=== PATIENT | female | born 1930 | race Caucasian/White ===

== ENCOUNTER → 2016-11-28 | Outpatient (CLI) | payer MEDICARE, OTHER ==
[~2016-11-28] MED LIST: ACET325T9 PO; B12/1TAB PO; CALC600T4 PO; DOCU50CA9 PO; HYOS0.3716 PO; LOVA20TA2 PO; MULTI; OMEP20CA9 PO; POTA20TA12 PO; PROXETINE; TRAZ50TA15 PO; [UNRECOGNIZED DRUG - OTHER]
== END | disposition home or self-care (01) ==
LOC: SPEC 08:17
PROVIDERS: ATTEND Specialist
DX: E78.5 Hyperlipidemia, unspecified (principal)
CPT/HCPCS: 84443

== ENCOUNTER 2017-01-27 08:16 | Emergency (ER) | payer MEDICARE, OTHER ==
[2017-01-27 09:01] LABS: BASO % 0 % (0-3); EOS % 0 % (0-3); HEMATOCRIT 39.3 % (36.0-47.0); HEMOGLOBIN 13.2 g/dL (12.0-15.5); LYMPH # 0.7 x10^3/uL (1.0-4.8); LYMPH % 7 % (24-48); MEAN CORPUSCULAR HEMOGLOBIN 31 pg (25-35); MEAN CORPUSCULAR HGB CONC 34 g/dL (31-37); MEAN CORPUSCULAR VOLUME 93 fL (79-100); MONO # 0.6 x10^3/uL (0.0-1.1); MONO % 7 % (0-9); NEUT % 86 % (31-73); PLATELET COUNT 151 x10^3/uL (140-400); RED BLOOD COUNT 4.22 x10^6/uL (3.50-5.40); RED CELL DISTRIBUTION WIDTH 13.1 % (11.5-14.5); WHITE BLOOD COUNT 9.4 x10^3/uL (4.0-11.0)
[2017-01-27 09:14] LABS: ALBUMIN 3.2 g/dL (3.4-5.0); ALBUMIN/GLOBULIN RATIO 1.1 (1.0-1.7); CALCIUM 8.3 mg/dL (8.5-10.1); CREATININE 0.8 mg/dL (0.6-1.0); GFR 67.7; POTASSIUM 3.7 mmol/L (3.5-5.1); TOTAL BILIRUBIN 0.8 mg/dL (0.2-1.0); TOTAL PROTEIN 6.2 g/dL (6.4-8.2)
--- NOTE | 2017-01-27 09:37 | RAD ---
Indication: Pain in the right pelvis, fall. Time of exam 0928 hours. A single AP view of the pelvis was obtained. The femoral acetabular alignment is normal bilaterally. Both femoral heads and necks appear intact. The rami appear intact. The SI joints and symphysis are not widened. Impression: No acute bony abnormality is detected.
[2017-01-27] MEDS ORDERED: LORazepam 2 MG/ML VIAL IV ONE (09:45)
[2017-01-27] MEDS ORDERED: MORPHINE SULFATE 5 MG/ML SYRINGE. IV ONE (09:45)
--- NOTE | 2017-01-27 09:46 | RAD ---
Indication: Fall and head injury with altered mental status. Axial imaging through the brain was performed without contrast. No prior studies are available for comparison. There is an acute subdural hematoma noted along the left cerebral convexity, measuring up to approximate 5 to 6 mm in thickness. No significant mass effect or midline shift is seen. There is a primarily low density subdural collection along the right cerebral convexity consistent with a chronic subdural, however, there is a thin region of hyperdensity within it consistent with acute blood. Findings are consistent with acute on chronic subdural on the right. No intraparenchymal or intraventricular hemorrhage is detected. Moderate periventricular hypodensity is seen consistent with senescent change. Cisterns are patent. Impression: 1. Acute left cerebral convexity subdural hematoma, without evidence of mass effect. 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 Results were discussed with Dr. Waller of the emergency Department prior to this dictation. PQRS Compliance Statement: One or more of the following individualized dose reduction techniques were utilized for this examination: 1. Automated exposure control 2. Adjustment of the mA and/or kV according to patient size 3. Use of iterative reconstruction technique
--- NOTE | 2017-01-27 10:12 | PHYS DOC ---
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 She was using her walker to get up in the middle of the night and go to the bathroom, she fell over onto her left side, striking her left hip/ buttock and left side of her head. sHe has been ambulatory since the fall. Today she has a headache and family members state that she is confused. The patient also states she has some pain in the lateral left hip area. The patient denies neck pain or other pain. Review of Systems Review of Systems Constitutional: Denies fever or chills [] Eyes: Denies change in visual acuity, redness, or eye pain [] HENT: Denies nasal congestion or sore throat [] Respiratory: Denies cough or shortness of breath [] Cardiovascular: Denies chest pain GI: Denies abdominal pain, nausea, vomiting, bloody stools or diarrhea [] : Denies dysuria or hematuria [] Musculoskeletal: Left hip/buttock area pain Integument: Denies rash or skin lesions [] Neurologic: As in history of present illness Current Medications Current Medications Current Medications Medications (Trade) Dose Ordered Sig/Buddy Start Time Stop Time Status Last Admin Dose Admin Lorazepam (Ativan) 1 mg 1X ONCE 01/27/17 09:45 01/27/17 09:45 DC Morphine Sulfate (Morphine 5mg Syringe) 5 mg 1X ONCE 01/27/17 09:45 01/27/17 09:45 DC Allergies Allergies Allergies Coded Allergies Type Severity Reaction Last Updated Verified No Known Drug Allergies 07/25/15 No Physical Exam Physical Exam Constitutional: Well developed, well nourished, no acute distress, non-toxic appearance. Alert, mentating normally on my assessment. HENT: Normocephalic, atraumatic, bilateral external ears normal, oropharynx moist, no oral exudates, nose normal. [] Eyes: PERRLA, EOMI, conjunctiva normal, no discharge. [] Neck: Normal range of motion, no tenderness, supple, no stridor. [] Cardiovascular:Heart rate regular rhythm, no murmur [] Lungs & Thorax: Bilateral breath sounds clear to auscultation [] Abdomen: Bowel sounds normal, soft, no tenderness, no masses, no pulsatile masses. [] Skin: Warm, dry, no erythema, no rash. [] Back: No tenderness, no CVA tenderness. [] Extremities: Tenderness to palpation over the lateral left hip and left buttock area. Full range of motion of the left hip without pain. Some pain with rocking of the pelvis. Otherwise, No tenderness, no cyanosis, no clubbing, ROM intact, no edema. [] Neurologic: Alert and oriented X 3, normal motor function, normal sensory function, no focal deficits noted. [] Current Patient Data Vital Signs Vital Signs Date Time Temp Pulse Resp B/P (MAP) Pulse Ox O2 Delivery O2 Flow Rate FiO2 01/27/17 08:30 98.6 78 18 96 Room Air Lab Results Laboratory Tests Test 01/27/17 08:47 White Blood Count 9.4 x10^3/uL (4.0-11.0) Red Blood Count 4.22 x10^6/uL (3.50-5.40) Hemoglobin 13.2 g/dL (12.0-15.5) Hematocrit 39.3 % (36.0-47.0) Mean Corpuscular Volume 93 fL (79-100) Mean Corpuscular Hemoglobin 31 pg (25-35) Mean Corpuscular Hemoglobin Concent 34 g/dL (31-37) Red Cell Distribution Width 13.1 % (11.5-14.5) Platelet Count 151 x10^3/uL (140-400) Neutrophils (%) (Auto) 86 % (31-73) H Lymphocytes (%) (Auto) 7 % (24-48) L Monocytes (%) (Auto) 7 % (0-9) Eosinophils (%) (Auto) 0 % (0-3) Basophils (%) (Auto) 0 % (0-3) Neutrophils # (Auto) 8.0 x10^3uL (1.8-7.7) H Lymphocytes # (Auto) 0.7 x10^3/uL (1.0-4.8) L Monocytes # (Auto) 0.6 x10^3/uL (0.0-1.1) Eosinophils # (Auto) 0.0 x10^3/uL (0.0-0.7) Basophils # (Auto) 0.0 x10^3/uL (0.0-0.2) Sodium Level 138 mmol/L (136-145) Potassium Level 3.7 mmol/L (3.5-5.1) Chloride Level 102 mmol/L (98-107) Carbon Dioxide Level 28 mmol/L (21-32) Anion Gap 8 (6-14) Blood Urea Nitrogen 13 mg/dL (7-20) Creatinine 0.8 mg/dL (0.6-1.0) Estimated GFR (Cockcroft-Gault) 67.7 BUN/Creatinine Ratio 16 (6-20) Glucose Level 179 mg/dL (70-99) H Calcium Level 8.3 mg/dL (8.5-10.1) L Total Bilirubin 0.8 mg/dL (0.2-1.0) Aspartate Amino Transferase (AST) 21 U/L (15-37) Alanine Aminotransferase (ALT) 27 U/L (14-59) Alkaline Phosphatase 106 U/L (46-116) Total Protein 6.2 g/dL (6.4-8.2) L Albumin 3.2 g/dL (3.4-5.0) L Albumin/Globulin Ratio 1.1 (1.0-1.7) EKG EKG [] Radiology/Procedures Radiology/Procedures One view AP pelvis read by me. No acute bony abnormality. CT scan of the head read by the radiologist who called me. The patient has acute on chronic right subdural hematoma and acute left subdural hematoma. There is no evidence of mass effect bilaterally. [] Course & Med Decision Making Course & Med Decision Making Pertinent Labs and Imaging studies reviewed. (See chart for details) 86-year-old female presents after a fall 2 days ago with a head injury. Evaluation reveals bilateral subdural hematomas. She is on aspirin 81 mg. She is alert with a normal neuro exam. I discussed the case with Zara for the surgery service at [facility]. They are comfortable taking the patient in transfer. I discussed the case with Dr. Jackson, hospitalist at [facility], who will accept the patient to transfer to the ICU. I discussed the diagnosis and plan with the patient and the family member here with her. They are agreeable to the plan and understand, questions were answered. The patient is stable for transfer to [place]. [] Dragon Disclaimer Dragon Disclaimer This chart was dictated in whole or in part using Voice Recognition software in a busy, high-work load, and often noisy Emergency Department environment. It may contain unintended and wholly unrecognized errors or omissions. Departure Departure: Impression: Primary Impression: Bilateral subdural hematomas Disposition: 02 XFER SHT-TRM HOSP Condition: STABLE Referrals: SILVANA FERNANDEZ MD (PCP) ASHLEY GARY MD Jan 27, 2017 10:12
[2017-01-27 10:19] LABS: BACTERIA,URINE 0 /HPF (0-FEW); BILIRUBIN,URINE NEG (NEG); CLARITY,URINE CLOUDY; COLOR,URINE YELLOW; GLUCOSE,URINE NEG (NEG); NITRITE,URINE NEG (NEG); RBC,URINE RARE /HPF (0-2); UROBILINOGEN,URINE 0.2 mg/dL (0.2 mg/dL); WBC,URINE RARE /HPF (0-4)
[2017-01-27 10:20] LABS: AMORPHOUS SEDIMENT,UR PRESENT /HPF
[2017-01-27 10:45] VITALS: BP 150/90
== END 2017-01-27 11:00 | disposition short-term general hospital (02) ==
LOC: ER 08:16
DX: S06.5X0A Traumatic subdural hemorrhage without loss of consciousness, initial encounter (principal); I10 Essential (primary) hypertension; K21.9 Gastro-esophageal reflux disease without esophagitis; W18.09XA Striking against other object with subsequent fall, initial encounter; Y93.89 Activity, other specified; Y99.8 Other external cause status; Y92.89 Other specified places as the place of occurrence of the external cause
CPT/HCPCS: 36415; 70450; 72170; 80053; 81001; 85027; 99285-25

== ENCOUNTER 2017-02-01 10:56 | Emergency (ER) | payer MEDICARE, OTHER ==
[2017-02-01] MEDS ORDERED: LORazepam 2 MG/ML VIAL IV ONE (11:30)
--- NOTE | 2017-02-01 11:40 | PHYS DOC ---
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 Today was brought in with the complaint of "fever", temp had been measured 100.4, also pain and apparent agitation. Written history that accompanies the patient states that she was given Tylenol at 10:00. There is no further history available, and patient is unable to contribute to the history. 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 Review of Systems Review of Systems Patient is unable to give verbal answers to review of his systems questions, ROS not able to be obtained due to altered mental status. Current Medications Current Medications Current Medications Medications (Trade) Dose Ordered Sig/Buddy Start Time Stop Time Status Last Admin Dose Admin Lorazepam (Ativan) 1 mg 1X ONCE 02/01/17 11:30 02/01/17 11:31 Allergies Allergies Allergies Coded Allergies Type Severity Reaction Last Updated Verified No Known Drug Allergies 07/25/15 No Physical Exam Physical Exam Constitutional: Elderly female who has her eyes open, moving all extremities, appears agitated, making agitated moaning noises, not able to verbally answer questions. HENT: Normocephalic, atraumatic, bilateral external ears normal, oropharynx moist, no oral exudates, nose normal. [] Eyes: PERRLA, EOMI, conjunctiva normal, no discharge. [] Neck: Normal range of motion, no tenderness, supple, no stridor. [] Cardiovascular:Heart rate regular rhythm, no murmur [] Lungs & Thorax: Bilateral breath sounds clear to auscultation [] Abdomen: Bowel sounds normal, soft, no tenderness, no masses, no pulsatile masses. [] Skin: Warm, dry, no erythema, no rash. [] Back: No tenderness, no CVA tenderness. [] Extremities: No tenderness, no cyanosis, no clubbing, ROM intact, no edema. [] Neurologic: Alert and oriented X 3, normal motor function, normal sensory function, no focal deficits noted. [] Psychologic: Affect normal, judgement normal, mood normal. [] EKG EKG 12-lead EKG read by me. Sinus rhythm. Heart rate 89. There is mild T wave flattening and inversion across the precordium most pronounced in V2 through V5 , there are no acute ST or T wave elevations or depressions. I don't believe the finding is significant for ischemia, more likely related to the brain injury , no STEMI. 12 with 3 [] Radiology/Procedures Radiology/Procedures CT scan of the head read by the radiologist, reviewed by me. Right-sided subdural has increased slightly in size. Predominantly of low density compatible with a chronic hematoma. Moderate sized left subdural hematoma is of similar size. Increasing bilateral mass effect with effacement of the cortical sulci in the lateral ventricles [] Course & Med Decision Making Course & Med Decision Making Pertinent Labs and Imaging studies reviewed. (See chart for details) 86-year-old female who was recently diagnosed with bilateral subdural hematomas , brought to the ED for altered mental status, agitation. The patient is markedly different than she was last week. She is not able to talk or answer questions due to agitation and confusion. She was given Ativan 1 mg IV so she could lay still for CT scan. She is nonfocal. CT scan shows slight increase in size of the right subdural hematoma with increasing bilateral mass effect. I discussed the case with Zara, neurosurgery service at [facility]. Dr. Reagan, neurosurgeon, reviewed the patient's CT scan. They will accept the patient to be transferred to [place] in the care of the hospital medicine service in the ICU. He advised that the patient should be kept with a systolic blood pressure under 140. The patient's systolics have been in the low 140s here. I will not start Cardene prior to transfer because I don't want to bottom her out in the ambulance in case of some mishap. I did communicate this with Dr. Trinidad that her blood pressure should be managed if her systolics are above 140. I discussed the case with Dr. Trinidad, [facility]. She will admit the patient. We will send the patient by ambulance to ICU at [place]. I discussed this with the friend who has accompanied the patient to the ED. [] Dragon Disclaimer Dragon Disclaimer This chart was dictated in whole or in part using Voice Recognition software in a busy, high-work load, and often noisy Emergency Department environment. It may contain unintended and wholly unrecognized errors or omissions. Departure Departure: Impression: Primary Impression: Bilateral subdural hematomas Additional Impressions: Mental status change Agitation Disposition: 02 XFER SHT-TRM HOSP Condition: GUARDED Referrals: SILVANA FERNANDEZ MD (PCP) Problem Qualifiers SAHLEY GARY MD Feb 01, 2017 11:40
[2017-02-01 11:58] LABS: BASO % 0 % (0-3); EOS % 0 % (0-3); HEMATOCRIT 36.5 % (36.0-47.0); HEMOGLOBIN 12.3 g/dL (12.0-15.5); LYMPH # 0.6 x10^3/uL (1.0-4.8); LYMPH % 6 % (24-48); MEAN CORPUSCULAR HEMOGLOBIN 32 pg (25-35); MEAN CORPUSCULAR HGB CONC 34 g/dL (31-37); MEAN CORPUSCULAR VOLUME 94 fL (79-100); MONO # 0.9 x10^3/uL (0.0-1.1); MONO % 11 % (0-9); NEUT # 7.3 x10^3uL (1.8-7.7); NEUT % 83 % (31-73); PLATELET COUNT 183 x10^3/uL (140-400); RED BLOOD COUNT 3.89 x10^6/uL (3.50-5.40); RED CELL DISTRIBUTION WIDTH 13.2 % (11.5-14.5); WHITE BLOOD COUNT 8.8 x10^3/uL (4.0-11.0)
--- NOTE | 2017-02-01 11:59 | RAD ---
CT of the head without contrast, 02/01/2017: History: Headache, confusion, recent subdural hematomas Comparison is made to a study from 01/27/2017. Again noted is a moderate sized recent subdural hematoma on the left. It is of similar overall size when compared to the 01/27/2017 exam. There is now some layering of higher density components posteriorly and low-density components anteriorly. There is also a persistent abnormal subdural fluid collection on the right. It appears to have increased slightly in size. It is predominantly of low density compatible with a chronic hematoma. There is only a small hyperdense component evident in the right temporal region The degree of effacement of the underlying cortical sulci has increased slightly on both sides. There is also increased effacement of the lateral ventricles. There is no significant midline shift. No intra-axial hemorrhage is identified. IMPRESSION: 1. Increasing bilateral mass effect with effacement of the cortical sulci and the lateral ventricles, related to the patient's known bilateral subdural hematomas. 2. The acute on chronic right-sided subdural hematoma appears to have increased slightly in size, while the evolving acute left subdural hematoma is of similar size when compared to the 01/27/2017 exam. PQRS Compliance Statement: One or more of the following individualized dose reduction techniques were utilized for this examination: 1. Automated exposure control 2. Adjustment of the mA and/or kV according to patient size 3. Use of iterative reconstruction technique
[2017-02-01 12:12] LABS: ALBUMIN 2.6 g/dL (3.4-5.0); ALBUMIN/GLOBULIN RATIO 0.7 (1.0-1.7); CALCIUM 8.2 mg/dL (8.5-10.1); GFR 52.3; POTASSIUM 3.9 mmol/L (3.5-5.1); TOTAL BILIRUBIN 0.5 mg/dL (0.2-1.0); TOTAL PROTEIN 6.2 g/dL (6.4-8.2)
[2017-02-01 13:07] VITALS: BP 143/82
--- NOTE | 2017-02-01 15:00 | EKG ---
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
== END 2017-02-01 13:20 | disposition short-term general hospital (02) ==
LOC: ER 10:56
DX: S06.5X0A Traumatic subdural hemorrhage without loss of consciousness, initial encounter (principal); R41.82 Altered mental status, unspecified; R45.1 Restlessness and agitation; K21.9 Gastro-esophageal reflux disease without esophagitis; I10 Essential (primary) hypertension; X58.XXXA Exposure to other specified factors, initial encounter; Y93.89 Activity, other specified; Y99.8 Other external cause status; Y92.89 Other specified places as the place of occurrence of the external cause
CPT/HCPCS: 36415; 70450; 80053; 85027; 93005; 96374; 99285; J2060

== ENCOUNTER 2017-03-16 09:20 | Inpatient (IN) | payer MEDICARE, OTHER ==
[~2017-03-16] VITALS: Ht 160 cm; Wt 60.6 kg
[2017-03-16] MEDS ORDERED: IV NORMAL SALINE 1,000ML 500 ML IV SCH (09:40)
[2017-03-16 10:00] LABS: WHITE BLOOD COUNT 11.6 x10^3/uL (4.0-11.0)
[2017-03-16 10:01] LABS: HEMATOCRIT 39.4 % (36.0-47.0); MEAN CORPUSCULAR HEMOGLOBIN 31 pg (25-35); MEAN CORPUSCULAR HGB CONC 33 g/dL (31-37); MEAN CORPUSCULAR VOLUME 93 fL (79-100); PLATELET COUNT 208 x10^3/uL (140-400); RED BLOOD COUNT 4.22 x10^6/uL (3.50-5.40); RED CELL DISTRIBUTION WIDTH 13.5 % (11.5-14.5)
[2017-03-16 10:15] LABS: % BANDS 1 % (0-9); % BASOS 1 % (0-3); % EOS 1 % (0-5); % LYMPHS 4 % (24-48); % MONOS 4 % (0-10); % SEGS 89 % (35-66); PLT ESTIMATE ADEQUATE (ADEQUATE)
[2017-03-16] MEDS ORDERED: ONDANSETRON PF 4 MG/2 ML VIAL. IV ONE (10:15)
[2017-03-16] MEDS: fentaNYL PF 100 MCG/2 ML VIAL IV PRN ×2 (10:22→14:25)
[2017-03-16 10:24] LABS: HEMOGLOBIN ISTAT 13.6 gm/dL; POTASSIUM ISTAT 4.1 mmol/L (3.5-5.0)
--- NOTE | 2017-03-16 10:43 | PHYS DOC ---
General Chief Complaint: GI PROBLEM Stated Complaint: ABDOMINAL PAIN Time Seen by MD: 09:25 Source: patient Exam Limitations: no limitations Problems: History of Present Illness Initial Comments Patient is an 86-year-old female brought to the ED with right lower quadrant pain. Patient states that she went to bed feeling well last night. She awoke to severe right lower quadrant pain at approximately 7 AM. She had accompanying nausea no vomiting, she went to breakfast and trying to eat a little bit but the pain was too severe. She was a vague historian on arrival due to severe discomfort, once her pain was controlled she denied any vomiting or diarrhea her last bowel movement was yesterday described as normal. She's had no urinary symptoms or other complaints until she awoke this morning. ED vitals: 98.1, 102, 22, 111/66, 95% room air Timing/Duration: 1-3 hours Severity: severe Modifying Factors: improves with other Associated Symptoms: nausea/vomiting, other Allergies: Coded Allergies: No Known Drug Allergies (Unverified , 07/25/15) Past Medical History Medical History: other (breast cancer, anxiety, constipation, GERD, hypertension) Surgical History: other (appendectomy, cholecystectomy, hysterectomy, mastectomy) Social History Smoker: non-smoker Alcohol: none Drugs: none Review of Systems Constitutional: denies chills, denies fever, malaise Respiratory: denies cough, denies shortness of breath, denies wheezing Cardiovascular: denies chest pain, denies palpitations, denies syncope Gastrointestinal: see HPI Genitourinary: denies dysuria, denies frequency, denies hematuria Musculoskeletal: denies back pain, denies joint swelling, denies neck pain Psychiatric/Neurological: denies headache, denies numbness, denies paresthesia Physical Exam General Appearance: WD/WN, moderate distress Eyes: bilateral eye normal inspection, bilateral eye PERRL, bilateral eye EOMI Ear, Nose, Throat: hearing grossly normal, normal ENT inspection, normal pharynx Neck: non-tender, supple Respiratory: normal breath sounds, no respiratory distress Cardiovascular: normal peripheral pulses, regular rate, rhythm Gastrointestinal: soft (nondistended, diffuse lower abdominal tenderness localized to the suprapubic and right lower quadrant regions. 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 She reports that her pain has resolved completely she is no longer nauseous. I advised her that her studies were pending. PATIENT: YVROSE MENDOZA ACCOUNT: [id number] : 1930 LOCATION: ER AGE: 86 SEX: F EXAM STATUS: REG ER ORD. PHYSICIAN: TYLER SNELL DO REASON: rlq abd pain PROCEDURE: CT ABDOMEN PELVIS WO CONTRAST CT abdomen/pelvis without contrast 03/16/2017 at 1005 hours Indication: Right lower quadrant abdominal pain Comparison: Abdomen/pelvis 07/25/2015 Technique: Multiple axial CT images of the abdomen and pelvis were obtained without intravenous contrast. Coronal and sagittal reformats are provided. Findings: Lung bases are clear. Heart size is within normal limits. Evaluation of the solid abdominal viscera is limited by lack of intravenous contrast. Stable hypodense lesions within the hepatic parenchyma measuring up to 32 x 25 mm most suggestive of simple cysts. Stable 12 mm peripherally calcified lesion in the inferior right hepatic lobe, which may represent prior hepatic cyst with wall calcification. Splenic and hepatic granuloma are present. Cholecystectomy changes are identified. Pancreas is within normal limits. CBD is prominent measuring up to 12 mm, stable. No renal calculi are identified. No hydronephrosis. No ureteral or bladder calculi are identified. Urinary bladder is within normal limits given degree of distention. Abdominal aorta is normal in course and caliber with scattered atherosclerotic desiccation. No enlarged abdominal or pelvic lymph nodes are identified. There is no free fluid or free intraperitoneal air. Small and large bowel loops are nondilated. Sigmoid diverticulosis is present without adjacent inflammatory changes to suggest diverticulitis. Appendix is not definitively visualized. No contour changes are identified in the right lower quadrant. There is grade 1 anterolisthesis of L3 on L4. There is moderate to severe spinal canal stenosis at L3-L4. No significant adnexal masses are identified. Impression: 1. No acute process is identified within the abdomen or pelvis. No calculi are identified in the kidneys, ureters or urinary bladder. No obstructive uropathy. 2. Appendix not definitively visualized. No infiltration is identified in the right lower quadrant. Correlation with surgical history is recommended. PQRS Compliance Statement: One or more of the following individualized dose reduction techniques were utilized for this examination: 1. Automated exposure control 2. Adjustment of the mA and/or kV according to patient size 3. Use of iterative reconstruction technique DICTATED AND SIGNED BY: MARTI CLEVELAND MD DATE: 03/16/17 1019 CC: SILVANA FERNANDEZ MD; TYLER SNELL DO ~ 1115: Time in department 1h 56min. Labs remain pending, pt will have prolonged ED course due to lab delay. Pertinent labs: White blood cells 11.6, 1, lactic acid 2.5, urinalysis grossly positive interaction I discussed the patient with Dr. Wan, urosepsis will require inpatient treatment. We'll continue IV hydration and will antimicrobial coverage with Zosyn and ciprofloxacin. Departure Disposition: ADMITTED INPATIENT Diagnosis: urosepsis Condition: STABLE Additional Instructions: Inpatient telemetry admission Dr. Wan is accepting TYLER SNELL DO Mar 16, 2017 10:43
--- NOTE | 2017-03-16 10:53 | RAD ---
CT abdomen/pelvis without contrast 03/16/2017 at 1005 hours Indication: Right lower quadrant abdominal pain Comparison: Abdomen/pelvis 07/25/2015 Technique: Multiple axial CT images of the abdomen and pelvis were obtained without intravenous contrast. Coronal and sagittal reformats are provided. Findings: Lung bases are clear. Heart size is within normal limits. Evaluation of the solid abdominal viscera is limited by lack of intravenous contrast. Stable hypodense lesions within the hepatic parenchyma measuring up to 32 x 25 mm most suggestive of simple cysts. Stable 12 mm peripherally calcified lesion in the inferior right hepatic lobe, which may represent prior hepatic cyst with wall calcification. Splenic and hepatic granuloma are present. Cholecystectomy changes are identified. Pancreas is within normal limits. CBD is prominent measuring up to 12 mm, stable. No renal calculi are identified. No hydronephrosis. No ureteral or bladder calculi are identified. Urinary bladder is within normal limits given degree of distention. Abdominal aorta is normal in course and caliber with scattered atherosclerotic desiccation. No enlarged abdominal or pelvic lymph nodes are identified. There is no free fluid or free intraperitoneal air. Small and large bowel loops are nondilated. Sigmoid diverticulosis is present without adjacent inflammatory changes to suggest diverticulitis. Appendix is not definitively visualized. No contour changes are identified in the right lower quadrant. There is grade 1 anterolisthesis of L3 on L4. There is moderate to severe spinal canal stenosis at L3-L4. No significant adnexal masses are identified. Impression: 1. No acute process is identified within the abdomen or pelvis. No calculi are identified in the kidneys, ureters or urinary bladder. No obstructive uropathy. 2. Appendix not definitively visualized. No infiltration is identified in the right lower quadrant. Correlation with surgical history is recommended. PQRS Compliance Statement: One or more of the following individualized dose reduction techniques were utilized for this examination: 1. Automated exposure control 2. Adjustment of the mA and/or kV according to patient size 3. Use of iterative reconstruction technique
[2017-03-16 11:05] LABS: ALBUMIN 3.4 g/dL (3.4-5.0); TOTAL PROTEIN 6.1 g/dL (6.4-8.2)
[2017-03-16 11:06] LABS: ALK PHOS 101 U/L (46-116); ALT (SGPT) 36 U/L (14-59); AST (SGOT) 38 U/L (15-37); TOTAL BILIRUBIN 0.8 mg/dL (0.2-1.0)
[2017-03-16 11:08] LABS: BILIRUBIN,URINE NEG (NEG); CLARITY,URINE CLOUDY; COLOR,URINE YELLOW; GLUCOSE,URINE NEG (NEG)
[2017-03-16 11:09] LABS: BACTERIA,URINE FEW /HPF (0-FEW); NITRITE,URINE POS (NEG); SQUAMOUS EPITHELIAL CELL,UR OCC /LPF; UROBILINOGEN,URINE 2 mg/dL (0.2 mg/dL); WBC,URINE 20-40 /HPF (0-4)
[2017-03-16 11:13] LABS: LIPASE 46 U/L (73-393)
[2017-03-16 11:21] LABS: DIRECT BILIRUBIN < 0.1 mg/dL (0.0-0.2)
[2017-03-16] MEDS ORDERED: PIP/TAZO PER PHARMACY MC PRN ×2 (11:30→14:30)
[2017-03-16] MEDS ORDERED: IV NORMAL SALINE 1,000ML 1,000 ML IV SCH (11:30)
[2017-03-16] MEDS ORDERED: ACETAMINOPHEN 325 MG TABLET PO PRN ×2 (11:45→17:15)
[2017-03-16] MEDS ORDERED: ONDANSETRON PF 4 MG/2 ML VIAL. IV PRN (11:45)
[2017-03-16] MEDS ORDERED: CIPROFLOXACIN 400MG PREMIX 200 ML IV ONE (11:50)
[2017-03-16] MEDS ORDERED: PIPERACILLIN/TAZOBACTAM 3.375 GM in IV NORMAL SALINE 50ML 50 ML IV ONE (12:10)
[2017-03-16] MEDS ORDERED: PIPERACILLIN/TAZOBACTAM 3.375 GM VIAL IV ONE (12:41)
[2017-03-16] MEDS ORDERED: IV NORMAL SALINE 50ML 50 ML ONE (12:41)
[2017-03-16 13:48] VITALS: BP 110/62
[2017-03-16] MEDS: IV NORMAL SALINE 1,000ML 1,000 ML IV SCH ×3 (14:25→20:15)
[2017-03-16] MEDS ORDERED: AMLO10TA4 PO (16:22)
[2017-03-16] MEDS ORDERED: OXYC-323 PO (16:22)
[2017-03-16] MEDS ORDERED: MELA3TAB2 PO (16:22)
[2017-03-16] MEDS ORDERED: DOCU-109 PO (16:22)
[2017-03-16] MEDS: PIPERACILLIN/TAZOBACTAM 3.375 GM in IV NORMAL SALINE 50ML 50 ML IV SCH ×2 (17:29→23:22)
[2017-03-16 19:20] VITALS: BP 117/66
[2017-03-16] MEDS: DOCUSATE SODIUM 100 MG CAPSULE PO PRN (20:16)
[2017-03-16] MEDS: MELATONIN 3 MG TABLET PO SCH (20:16)
[2017-03-16] MEDS: oxyCODONE/APAP 5/325 1 TAB TABLET PO PRN (20:18)
[2017-03-16] MEDS ORDERED: CIPROFLOXACIN 400MG PREMIX 200 ML IV SCH (21:00)
--- NOTE | 2017-03-16 22:24 | HP ---
ADMIT DATE: 03/16/2017 HISTORY OF PRESENT ILLNESS: The patient is an 86-year-old female patient, a resident at [facility] who came to the Emergency Room complaining of right upper quadrant pain which is stabbing in nature, and comes and goes. She has no history of recent falls. Denied any history of dysuria, frequency, or hematuria. Denied any history of renal stones, and her appendix and gallbladder were removed. She was investigated in the Emergency Room and was found to have leukocytosis with a white cell count of 11,600. Her chemistry showed that her lactic acid was slightly high at 2.5, and her urinalysis showed that her urine was yellow and cloudy with a pH of 7.5, and nitrites were positive as well as there were 20-40 WBCs and she was admitted with a diagnosis of urinary tract infection. A CT scan of the abdomen and pelvis; however, was unremarkable. In particular, there was no renal calculi identified. No hydronephrosis, ureteral, or bladder calculi identified and the bladder is within normal limits, given the degree of distention. In conclusion, there is no acute process identified in her abdomen and pelvis. No calculi identified in the kidneys, ureters, and bladder. No obstructive uropathy. The appendix was not definitely visualized, no infiltration identified in the right lower quadrant, and the patient was admitted to continue with IV antibiotic and IV fluid. PAST MEDICAL HISTORY: Significant for hypertension, gastroesophageal reflux disease, and has also history of subdural hematoma, status post evacuation. She has a history of breast cancer, status post mastectomy, and generalized osteoarthritis. PAST SURGICAL HISTORY: Significant for appendectomy, cholecystectomy, right mastectomy, total abdominal hysterectomy, bilateral salpingo-oophorectomy, and most recently a bilateral subdural hematoma, status post evacuation. ALLERGIES: She has no known drug allergies. MEDICATIONS: She is currently on the following medications: Tylenol 650 mg every 4 hours, amlodipine 10 mg once a day, Colace 100 mg daily p.r.n. for constipation, melatonin 3 mg at bedtime, omeprazole 20 mg once a day, Percocet 5/325 one tablet q.4-6 hours, and potassium chloride 20 mEq daily as needed. FAMILY HISTORY: Unremarkable. 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 She does not smoke, drink alcohol, or use any recreational drugs. 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 REVIEW OF SYSTEMS: As per history of present illness. PHYSICAL EXAMINATION: GENERAL: When I examined her, she was resting, slightly propped up in bed, in no apparent distress. She was pale, no jaundice, cyanosis, or thyromegaly. No jugular venous distention. No lymphedema. VITAL SIGNS: Her heart rate was 76, blood pressure was 110/60, temperature was 101.1, respiratory rate 20, and oxygen saturation was 96% on 2 liters of oxygen by nasal cannula. HEAD, EYES, EARS, NOSE AND THROAT: Showed normocephalic, status post craniotomy for evacuation of the subdural hematoma. The surgical incision has healed nicely. The head jason are removed. NECK: Supple. HEART: Normal first and second heart sounds with no gallop, rub, or murmur. CHEST: Clear to auscultation. No crepitation or rhonchi. ABDOMEN: Distended, soft, nontender. No guarding or rigidity. No organomegaly. All hernial orifices intact and bowel sounds normal. NEUROLOGIC: She was slightly demented, but otherwise without any obvious lateralizing sign. All her cranial nerves intact. EXTREMITIES: She moves extremities without difficulty. 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 LABORATORY DATA: While in the Emergency Room, she had lab work done, which showed a white cell count of 11,600, hemoglobin 13, hematocrit 39, MCV 93, and platelet count ____. The manual differential showed 89% poly segments, 1% bands, 4% lymphocytes, 4% monocytes. Her chemistry showed a serum sodium 140, potassium 4.1, chloride 101, bicarbonate 25, anion gap of 19, BUN 15, creatinine 0.7, and glucose 149. Lactic acid was 2.5 and her ionized calcium was 1.15. Total bilirubin, AST, ALT, alkaline phosphatase were normal. Total protein 6.1, albumin 3.4. Lipase was 46. Urinalysis showed the urine was yellow and cloudy with a pH of 7.5, specific gravity of ____. The urine was negative for protein, glucose, ketones, or blood, but was positive for nitrites and leukocyte esterase. There were 6-10 RBCs, 20-40 WBCs, few bacteria. The CT scan of the abdomen and pelvis showed the lung bases were clear and heart size was within normal limits. Evaluation of the abdominal viscera is limited by lack of intravenous contrast, stable hypodense lesions within the hepatic parenchyma measuring up to 32 x 25 mm, most suggestive of simple cysts, stable 12-mm peripherally calcified lesion in the inferior right hepatic lobe, which may represent prior hepatic cyst with wall calcification, splenic and hepatic granulomas are present. Cholecystectomy changes are identified. The pancreas is within normal limits. Bile duct is prominent measuring up to 12 mm and stable. No renal calculi identified. No hydronephrosis, no ureteral or bladder calculi identified. The urinary bladder is within renal limits, given degree with distention. Abdominal aorta is normal in course and caliber with scattered atherosclerotic desiccation, no enlarged abdominal or pelvic lymph nodes identified. There is no free fluid or free intraperitoneal air. There small and large bowel are nondilated. Sigmoid diverticulosis is present without adjacent inflammatory changes, just diverticulitis. Appendix is not definitely visualized. No contour changes are identified in the right lower quadrant. There is grade 1 anterolisthesis of L3 over L4. There is [id number] spinal canal stenosis at L3-L4, no significant adnexal masses are identified. IMPRESSION: No acute process identified within the abdomen and pelvis. No calculi identified in the kidneys, ureters, or urinary bladder, no obstructive uropathy. Appendix is not definitely visualized. No ____ filtration is identified in the right lower quadrant and correlation with surgical history is recommended. I did examine also her skin. She has some tenderness in the right renal angle. There are no obvious shingles on the right side of the chest wall. The pain is not induced by taking deep breaths, coughing, or changing positions, but it comes and goes as if she has some form of renal colic. PLAN: The plan is to continue with the IV fluids, IV antibiotics, and pain medication. I will order right-sided rib views to make sure that there is no evidence of rib fracture, especially in the lower ones like 11-12 ribs on the right side and we will decide on further management according to her response. ISAÍAS BLANCHARD MD DR: KATALINA/scar JOB#: [id number] / [id number]
[2017-03-16 22:35] VITALS: BP 108/55
[2017-03-17] MEDS: CIPROFLOXACIN 400MG PREMIX 200 ML IV SCH ×2 (00:09→12:08)
--- NOTE | 2017-03-17 04:18 | ACF ---
Admission Criteria Forms SEPSIS and Other Febrile Illness Without Focal Infection (Place 'X' for any and all applicable criteria): Admission to inpatient status for two midnights or more is indicated for ANY ONE of the following (1)(2)(3): [ ] I. Bacteremia [X]II. Suspected or identified specific infection requiring hospitalization (eg, meningitis, endocarditis) [ ]III. Hemodynamic instability [ ]IV. Temperature > 104.9 0F (40.5 0C) (oral) [ ]V. Core (rectal) temperature < 95 0F (35 0C) (eg, thought to be due to infection) [ ]. Altered mental status that is severe or persistent [ ]VII. Failure or unavailability of outpatient antimicrobial treatment [ ]VIII. Hypoxemia [ ]IX. Seizures [ ]X. New coagulopathy (eg, reduced platelet count consistent with disseminated intravascular coagulation) [ ]XI. Inpatient admission required [B] rather than observation care because of 1 or more of the following 1) Tachypnea not responsive to outpatient or observation treatment 2) Metabolic disorder (eg, hypoglycemia, hyperglycemia, metabolic acidosis ) that persists despite outpatient and observation care treatment 3) Evidence of end-organ dysfunction (eg, rising creatinine, myocardial ischemia, rising liver function tests) that is severe or persists despite observation care treatment 4) Temperature > 103.1 0F (39.5 0C) (oral) that is not responsive to observation care treatment 5) Dehydration that is severe or persistent 6) Parenteral antimicrobial regimen that must be implemented on inpatient basis (eg, infusion or monitoring needs beyond capabilities of outpatient parenteral therapy) 7) Strict or protective (eg, laminar flow) isolation 8) Other condition, treatment or monitoring requiring inpatient admission Extended stay beyond goal length of stay may be needed for(1)(3) [ ]a) Persistent Hypotension [ ]b) Positive blood cultures [ ]c) Lack of improvement on antimicrobial treatment (eg, continued fever) [ ]d) Active comorbid illness (eg, heart failure, renal failure) [ ]e) High-risk febrile neutropenia [ ]f) Insufficient oral intake [ ]g) insufficient oral intake The original [facility] content created by [employer] has been revised. The portions of the content which have been revised are identified through the use of italic text, and [facility] [employer] has neither reviewed nor approved the modified material. All other unmodified content is copyright [facility]. Please see references footnoted in the original [facility] edition 2015 Admission Criteria Met?: Yes TAL MARSHALL Mar 17, 2017 04:18
[2017-03-17] MEDS: PIPERACILLIN/TAZOBACTAM 3.375 GM in IV NORMAL SALINE 50ML 50 ML IV SCH ×3 (05:41→12:08)
[2017-03-17 05:50] VITALS: BP 105/62
[2017-03-17] MEDS: oxyCODONE/APAP 5/325 1 TAB TABLET PO PRN ×3 (05:53→20:18)
[2017-03-17 06:32] LABS: BASO % 0 % (0-3); EOS % 0 % (0-3); HEMATOCRIT 29.8 % (36.0-47.0); HEMOGLOBIN 10.1 g/dL (12.0-15.5); LYMPH # 0.6 x10^3/uL (1.0-4.8); LYMPH % 6 % (24-48); MEAN CORPUSCULAR HEMOGLOBIN 32 pg (25-35); MEAN CORPUSCULAR HGB CONC 34 g/dL (31-37); MEAN CORPUSCULAR VOLUME 93 fL (79-100); MONO # 0.4 x10^3/uL (0.0-1.1); MONO % 5 % (0-9); NEUT # 8.5 x10^3uL (1.8-7.7); NEUT % 89 % (31-73); PLATELET COUNT 127 x10^3/uL (140-400); RED CELL DISTRIBUTION WIDTH 13.7 % (11.5-14.5); WHITE BLOOD COUNT 9.6 x10^3/uL (4.0-11.0)
[2017-03-17 06:53] LABS: ALBUMIN 2.1 g/dL (3.4-5.0); ALBUMIN/GLOBULIN RATIO 0.7 (1.0-1.7); CALCIUM 7.5 mg/dL (8.5-10.1); CREATININE 0.9 mg/dL (0.6-1.0); GFR 59.1; POTASSIUM 3.7 mmol/L (3.5-5.1); TOTAL BILIRUBIN 0.3 mg/dL (0.2-1.0)
--- NOTE | 2017-03-17 07:48 | RAD ---
Right RIBS with chest, 3 views, 03/16/2017: History: Right-sided rib pain No rib fracture or destructive bony lesion is seen. Costochondral calcifications are evident. There are moderate multilevel degenerative changes in the spine. The heart size is normal. There is calcific plaquing and tortuosity of the thoracic aorta. The lungs are clear. No pulmonary infiltrate, pneumothorax or hemothorax is seen. IMPRESSION: No significant right rib abnormality is detected.
[2017-03-17] MEDS: PANTOPRAZOLE 40 MG TABLET. PO SCH (08:42)
[2017-03-17] MEDS: amLODIPine BESYLATE 10 MG TABLET PO SCH (08:42)
[2017-03-17] MEDS: POTASSIUM CHLORIDE 20 MEQ TABLET.ER. PO SCH (08:42)
[2017-03-17 10:22] VITALS: BP 99/59
[2017-03-17 15:03] VITALS: BP 91/56
[2017-03-17] MEDS: IV NORMAL SALINE 1,000ML 1,000 ML IV SCH ×2 (16:47→20:17)
[2017-03-17 18:41] VITALS: BP 106/60
[2017-03-17] MEDS: MELATONIN 3 MG TABLET PO SCH (20:17)
[2017-03-17] MEDS: DOCUSATE SODIUM 100 MG CAPSULE PO PRN (20:17)
[2017-03-17 23:05] VITALS: BP 102/61
[2017-03-18] MEDS: CIPROFLOXACIN 400MG PREMIX 200 ML IV SCH ×2 (00:07→12:23)
--- NOTE | 2017-03-18 04:09 | PN ---
DATE: 03/17/2017 SUBJECTIVE: The patient is sitting comfortably in her chair, eating lunch comfortably in no apparent distress. She continued to have right upper quadrant pain, although it is now only 2 out of 10 in severity. The nursing staff did not voice any concern and stated that she had an uneventful night. She has had no fever since yesterday. PHYSICAL EXAMINATION: GENERAL: When I examined her, she was slightly pale, but no jaundice, cyanosis, or thyromegaly. No jugular venous distention. No lower limb edema. VITAL SIGNS: Her heart rate was 61, blood pressure was 99/59, temperature was 98.2, respiratory rate 20 and oxygen saturation was 94% on room air. HEAD, EYES, EARS, NOSE AND THROAT: Showed normocephalic, atraumatic. NECK: Supple. HEART: Showed normal first and second heart sounds with no gallop, rub or murmur. CHEST: Clear to auscultation. No crepitation or rhonchi. ABDOMEN: Distended, soft, nontender. No guarding or rigidity. No organomegaly. Hernial orifices intact. Bowel sounds normal. NEUROLOGIC: She was awake, alert, responding appropriately. Cranial nerves intact. She actually walks with a walker. Her intake over the last 24 hours was 2750, output was 1050. LABORATORY DATA: Showed a serum sodium 140, potassium 3.7, chloride 108, bicarbonate 25, anion gap of 7, BUN 14, creatinine was 0.9 mg/dL. Estimated GFR was 59 mL per minute. Her glucose was 94. Lactic acid is 1.2. Calcium was 7.5. Total bilirubin, AST, ALT, alkaline phosphatase were normal. Her total protein was 5. Albumin 2.7. White cell count was 9600, hemoglobin 10, hematocrit 30, MCV 93 and platelet count of 127,000 with normal manual differential. Her urine culture has grown more than 100,000 colony-forming units per mL of gram-negative rods, the identification and sensitivity, which is still pending. ASSESSMENT: 1. Urinary tract infection with urine culture growing more than 100,000 colony forming units per mL of gram-negative rods, the identification and sensitivity, which is still pending. 2. Right upper quadrant pain in a patient with status post cholecystectomy and CT scan of the abdomen and pelvis are unremarkable. 3. Hypertension seems to be well controlled. 4. Gastroesophageal reflux disease. 5. Subdural hematoma status post evacuation. 6. Breast cancer status post mastectomy. 7. Generalized osteoarthritis. 8. Protein-calorie malnutrition with serum albumin is only 2.1 g/dL. She has also thrombocytopenia concerning as her platelets has dropped from 208 to 127. She is on two antibiotics. I will probably discontinue piperacillin and tazobactam as it is the most likely cause thrombocytopenia. Once we have the identification and sensitivity, she will be discharged back to [facility]. ISAÍAS BLANCHARD MD DR: KATALINA/scar JOB#: [id number] / [id number]
[2017-03-18] MEDS: oxyCODONE/APAP 5/325 1 TAB TABLET PO PRN (05:33)
[2017-03-18 06:05] VITALS: BP 130/65
[2017-03-18 06:40] LABS: HEMATOCRIT 35.2 % (36.0-47.0); HEMOGLOBIN 11.8 g/dL (12.0-15.5); RED BLOOD COUNT 3.73 x10^6/uL (3.50-5.40); RED CELL DISTRIBUTION WIDTH 13.7 % (11.5-14.5); WHITE BLOOD COUNT 7.8 x10^3/uL (4.0-11.0)
[2017-03-18 06:52] LABS: ALBUMIN 2.4 g/dL (3.4-5.0); ALBUMIN/GLOBULIN RATIO 0.7 (1.0-1.7); CALCIUM 7.7 mg/dL (8.5-10.1); CREATININE 0.7 mg/dL (0.6-1.0); POTASSIUM 3.9 mmol/L (3.5-5.1); TOTAL BILIRUBIN 0.3 mg/dL (0.2-1.0); TOTAL PROTEIN 5.8 g/dL (6.4-8.2)
[2017-03-18] MEDS: POTASSIUM CHLORIDE 20 MEQ TABLET.ER. PO SCH (08:28)
[2017-03-18] MEDS: PANTOPRAZOLE 40 MG TABLET. PO SCH (08:28)
[2017-03-18] MEDS: amLODIPine BESYLATE 10 MG TABLET PO SCH (08:28)
[2017-03-18] MEDS ORDERED: KETOROLAC 15 MG/ML VIAL. IV ONE (09:00)
[2017-03-18 10:53] VITALS: BP 109/57
[2017-03-18] MEDS: IV NORMAL SALINE 1,000ML 1,000 ML IV SCH (12:07)
[2017-03-18] MEDS ORDERED: CIPR500T PO (12:47)
--- NOTE | 2017-03-18 13:54 | RAD ---
CT head without contrast 03/18/2017 at 1327 hours Indication: Follow-up subdural hematoma Comparison: Head CT 02/01/2017 Technique: Multiple axial noncontrast CT images of the head were obtained from the skull base through the vertex. Findings: Bifrontal juliann holes are identified. There is a 3-4 mm left cerebral convexity subdural collection with associated mild sulcal effacement on the left, significantly improved since 02/01/2017. Interval resolution of a right subdural hematoma. No midline shift. Ventricles and sulci are mildly prominent compatible with generalized cerebral volume loss. Low-attenuation periventricular white matter is compatible with chronic small vessel ischemic changes. Posterior fossa is within normal limits. Sellar and suprasellar cistern appear normal. Vascular calcifications are noted in the cavernous segments of the internal carotid arteries and vertebral arteries. Orbits are normal in appearance. Paranasal sinuses are well aerated. Mastoid air cells are well aerated. Scalp and calvaria are normal. Impression: 1. Interval bifrontal juliann holes with resolution of right cerebral convexity subdural collection. 2. Improved appearance of a left subdural hematoma with 3-4 mm residual subdural collection along the left cerebral convexity with mild persistent sulcal effacement. PQRS Compliance Statement: One or more of the following individualized dose reduction techniques were utilized for this examination: 1. Automated exposure control 2. Adjustment of the mA and/or kV according to patient size 3. Use of iterative reconstruction technique
--- NOTE | 2017-03-19 00:21 | DS ---
DATE OF DISCHARGE: 03/18/2017 HOSPITAL COURSE: The patient is an 86-year-old sister from the [facility] who was admitted with a complaint of right lower quadrant pain. She had nausea, but no vomiting. She was extensively investigated in the Emergency Room and her lab work showed that she has leukocytosis. She was actually afebrile 101.1, so urine and blood were sent for culture and sensitivity. Her urinalysis showed that she has 20-40 wbc's and positive for nitrite and leukocyte esterase, and urine has grown more than 100,000 colony forming units per mL of gram-negative rods. The identification and sensitivity is still pending. She has no known drug allergies. She was treated initially with broad-spectrum antibiotic including ciprofloxacin as well as Zosyn; however, her platelet count started trending down and dropped from 208 to 127, so I discontinued Zosyn. Continue ciprofloxacin. The patient has clinically responded very well. She has been afebrile since admission and her white cell count is down. The patient wanted to go back to the long term facility, and so I did switch her to oral ciprofloxacin. Once we have the actual identification and sensitivity, we will call the [facility] to make sure that she is on the right antibiotic. PHYSICAL EXAMINATION: GENERAL: When I saw her today, she looked well and was clearly in no apparent respiratory distress, pale, but no jaundice. No lymphadenopathy, no thyromegaly. No jugular venous distention, no lymphedema. VITAL SIGNS: Her heart rate was 67, blood pressure 109/57, temperature was 98.5, respiratory rate 20, and oxygen saturation was 95% on room air. HEAD, EYES, EARS, NOSE AND THROAT: Normocephalic, atraumatic. She is status post craniotomy to evacuate the subdural hematoma. NECK: Supple. HEART: Showed normal first and second heart sounds with no gallop, rub or murmur. CHEST: Clear to auscultation. No crepitation or rhonchi. ABDOMEN: Distended, soft, nontender. No guarding or rigidity. No organomegaly. Hernial orifices intact. Bowel sounds normal. NEUROLOGIC: She was awake, alert, responding appropriately. Cranial nerves intact. She moves extremities without difficulty. She is mostly bedbound, chair bound; however, she does ambulate with a walker. Her intake over the last 24 hours was 3100, output was 1200. LABORATORY DATA: As of this morning, her white cell count is down to 7800, hemoglobin 11.8, hematocrit 35.2, MCV 94 and platelet count 243,000. Serum sodium was 141, potassium 3.9, chloride 109, bicarbonate 27, anion gap of 5, BUN 10, creatinine 0.7, estimated GFR was 79 mL per minute. Her glucose was 81, calcium was 7.7. Total bilirubin, AST, ALT, alkaline phosphatase were normal. Total protein was 5.8, albumin 2.4. Her blood culture was so far negative and urine culture has grown more than 100,000 colony forming units per mL of gram-negative rods. Unfortunately the identification and sensitivity is still pending at the time of this dictation. As the patient is responding clinically to the antibiotic, a decision was made to discharge her home to continue on oral ciprofloxacin 500 mg twice a day. We will call the facility once we have the actual identification and sensitivity. DISCHARGE MEDICATIONS: She will be discharged to continue on following medications: Acetaminophen 650 mg every 4 hours, amlodipine 10 mg once a day, docusate sodium 100 mg once a day, melatonin 3 mg once a day, omeprazole 20 mg once a day, oxycodone/APAP 5/325 one tablet every 4-6 hours, potassium chloride 20 mEq once a day. She will also be on ciprofloxacin 500 mg twice a day for 7 days. FINAL DISCHARGE DIAGNOSES: 1. Urinary tract infection growing more than 100,000 colony forming units per mL of gram-negative rods. The identification and sensitivity is still pending; however, the patient clinically is responding well to the IV ciprofloxacin and decision was made to discharge her to continue on oral ciprofloxacin. As she is responding clinically, I will continue with oral Cipro and will contact Raffi Monreal once we have the identification and sensitivity. 2. Right upper quadrant pain for which I could not really find any explanation. She is status post cholecystectomy. CT scan of the abdomen and pelvis was unremarkable. There were no stones in her kidney or ureter. She does respond to oral Percocet. We will continue with that. 3. Hypertension, seems to be well controlled. 4. Gastroesophageal reflux disease, for which she is on omeprazole. 5. Subdural hematoma status post evacuation. 6. Breast cancer, status post mastectomy. 7. Generalized osteoarthritis. 8. Protein-calorie malnutrition, serum albumin is only 2.1 gram per dL. ISAÍAS BLANCHARD MD DR: Amee JOB#: [id number] / [id number]
== END 2017-03-18 14:35 | disposition home or self-care (01) | DRG 871 ==
LOC: ER 09:20 → 1 SOUTH 11:38
PROVIDERS: ADMIT Internal Medicine; ATTEND Internal Medicine
DX: A41.9 Sepsis, unspecified organism (principal); E43 Unspecified severe protein-calorie malnutrition; N39.0 Urinary tract infection, site not specified; D69.6 Thrombocytopenia, unspecified; I10 Essential (primary) hypertension; K21.9 Gastro-esophageal reflux disease without esophagitis; F41.9 Anxiety disorder, unspecified; K59.00 Constipation, unspecified; R10.11 Right upper quadrant pain; M15.9 Polyosteoarthritis, unspecified; Z85.3 Personal history of malignant neoplasm of breast; Z90.10 Acquired absence of unspecified breast and nipple; Z90.49 Acquired absence of other specified parts of digestive tract; Z90.710 Acquired absence of both cervix and uterus; Z90.722 Acquired absence of ovaries, bilateral; Z68.23 Body mass index [BMI] 23.0-23.9, adult
CPT/HCPCS: 36415; 70450; 71101; 74176; 80047; 80053; 80076; 81001; 83605; 83690; 84484; 85007; 85025; 85027; 87040; 87086; 87641; 96361; 96374; J0744; J1885; J2405; J2543; J3010; 97116; 99285-25; J7030

== ENCOUNTER → 2017-03-28 | Outpatient (CLI) | payer MEDICARE, OTHER ==
[2017-03-18 10:53] VITALS: BP 109/57
[~2017-03-28] MED LIST changes: +AMLO10TA4 PO; +CIPR500T PO; +DOCU-109 PO; +MELA3TAB2 PO; +OXYC-323 PO
[2017-03-28 05:08] LABS: BILIRUBIN,URINE NEG (NEG); CLARITY,URINE HAZY; COLOR,URINE YELLOW; GLUCOSE,URINE NEG (NEG); NITRITE,URINE NEG (NEG); UROBILINOGEN,URINE 0.2 mg/dL (0.2 mg/dL); WBC,URINE OCC /HPF (0-4)
[2017-03-28 05:09] LABS: BACTERIA,URINE FEW /HPF (0-FEW); SQUAMOUS EPITHELIAL CELL,UR FEW /LPF
== END | disposition home or self-care (01) ==
LOC: SPEC 04:00
PROVIDERS: ATTEND Specialist
DX: Z00.01 Encounter for general adult medical examination with abnormal findings (principal); N20.0 Calculus of kidney
CPT/HCPCS: 81001; 87086

== ENCOUNTER → 2017-06-02 | Outpatient (CLI) | payer MEDICARE, OTHER ==
[2017-06-02 09:44] LABS: CALCIUM 9.2 mg/dL (8.5-10.1); CREATININE 0.8 mg/dL (0.6-1.0); GFR 67.5; MAGNESIUM 2.3 mg/dL (1.8-2.4); POTASSIUM 3.9 mmol/L (3.5-5.1)
== END | disposition home or self-care (01) ==
LOC: SPEC 09:24
PROVIDERS: ATTEND Specialist
DX: E78.5 Hyperlipidemia, unspecified (principal); I10 Essential (primary) hypertension; Z85.3 Personal history of malignant neoplasm of breast
CPT/HCPCS: 36415; 80048; 83735

== ENCOUNTER → 2017-08-21 | Outpatient (CLI) | payer MEDICARE, OTHER ==
[2017-08-21 23:01] LABS: BACTERIA,URINE FEW /HPF (0-FEW); BILIRUBIN,URINE NEG (NEG); CLARITY,URINE HAZY; COLOR,URINE YELLOW; GLUCOSE,URINE NEG (NEG); NITRITE,URINE NEG (NEG); SQUAMOUS EPITHELIAL CELL,UR MOD /LPF; UROBILINOGEN,URINE 0.2 mg/dL (0.2 mg/dL)
== END | disposition home or self-care (01) ==
LOC: SPEC 16:22
PROVIDERS: ATTEND Specialist
DX: Z00.00 Encounter for general adult medical examination without abnormal findings (principal); R79.89 Other specified abnormal findings of blood chemistry; Z87.440 Personal history of urinary (tract) infections
CPT/HCPCS: 81001; 87086